=== PATIENT | female | born 1940 | race Caucasian/White ===

== ENCOUNTER 2024-06-13 01:59 | Inpatient (IN) | payer OTHER, SELFPAY ==
[2024-06-12 17:37] VITALS: BP 123/87
[2024-06-12 17:54] LABS: % Basophils 0.3 % (0-2); % Eosinophils 0.1 % (0-6); % Immature Granulocytes 0.3 % (0-0.5); % Lymphocytes 7.3 % (20.5-51.1); Absolute Monocytes 0.8 10^3/uL (0.1-0.6); Absolute Neutrophils 11.7 10^3/uL (1.4-6.5); Hematocrit 45.6 % (37.0-47.0); Hemoglobin 15.2 g/dL (12.0-16.0); Mean Corp Hgb Conc. 33.3 g/dL (33.0-37.0); Mean Corpuscular Hgb 30.6 pg (27.0-31.0); Mean Corpuscular Volume 91.8 fL (81.0-99.0); Mean Platelet Volume 10.8 fL (7.4-10.4); Nucleated Red Blood Cells % 0 %; Platelet Count 216 10^3/uL (130-400); Red Blood Cell Count 4.97 10^6/uL (4.20-5.40); Red Cell Dist. Width 13.2 % (11.5-14.5); White Blood Cell Count 13.6 10^3/uL (4.8-10.8)
[2024-06-12 18:06] LABS: Lactic Acid 0.9 mmol/L (0.7-2.0)
[2024-06-12 18:34] LABS: ALT (SGPT) 22 U/L (0-35); AST (SGOT) 24 U/L (14-36); Albumin 4.2 g/dl (3.5-5.0); Alkaline Phosphatase 84 U/L (38-126); Blood Urea Nitrogen 31 mg/dl (7-17); Calcium 9.8 mg/dl (8.4-10.2); Carbon Dioxide 29 mmol/L (22-30); Chloride 100 mmol/L (98-107); Glucose 125 mg/dl (70-99); Lipase 309 U/L (23-300); Potassium 4.3 mmol/L (3.5-5.1); Sodium 137 mmol/L (135-145); Total Bilirubin 0.3 mg/dl (0.2-1.3); Total Protein 6.8 g/dl (6.3-8.2)
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
[2024-06-12] MEDS: NSS 500 IV (22:47)
[2024-06-12 22:50] VITALS: BP 158/71
[2024-06-12 22:52] VITALS: BMI 35.7
[2024-06-13] MEDS: ZOSYN 50 IV ×5 (01:11→23:40)
--- NOTE | 2024-06-13 01:11 | HPS.HSE ---
Family Physician
-
Family Physician: Isaiah Ortiz
Chief Complaint
-
Abdominal pain
History of Present Illness
This is an 83-year-old female with past medical history of hypertension, proximal atrial fibrillation on anticoagulation, presenting to the emergency department with acute episode of abdominal pain.
She reports within 1 hour of arrival in the ED she had developed right lower quadrant abdominal pain. No radiation. There is generalized nausea but no vomiting. Denies any diarrhea. Denies any fevers or chills. No other prior episodes of
similar pain.
In the ED he was afebrile, blood pressure was 158/70 with a pulse of 71. She had leukocytosis of 13,000 otherwise hemoglobin and platelets were normal. Electrolytes and BUN/creatinine were unremarkable. Lipase was elevated at 309 otherwise LFTs
were normal. A CT of the abdomen pelvis shows acute appendicitis as evidenced by dilated appendix up to 1.2 cm with mild diffuse wall thickening and prominent periappendiceal fat stranding.
Medical History
Past Medical History
Past Medical History: Reports Arrhythmia (Proximal atrial fibrillation), HTN and Hypercholesterolemia
Past Surgical History: Reports Cholecystectomy, Gynocological (Hysterectomy), Orthopedic (Left shoulder replacement, ) and Urological
Social History
Tobacco: Non-smoker
Alcohol: None
Drug: None
Personal: Single
Living: With Family
Family History
Family History: Not pertinent
Allergies / Home Medications
Allergies reflects when Allergies were last updated in [employer].
Home Medications with original date entered in [employer]
Allergy/Medication List:
Allergies
Allergy/AdvReac Type Severity Reaction Status Date / Time
Sulfa (Sulfonamide Allergy Unknown Rash Verified 06/12/24 17:37
Antibiotics) Swelling
latex [Latex] Allergy Rash & Verified 06/12/24 17:37
Swelling
Home Medications
lisinopril 20 mg-hydrochlorothiazide 12.5 mg tablet 2 ea PO DAILY 02/14/16
acetaminophen 325 mg tablet 650 mg PO PRN PRN pain 06/13/24
apixaban 2.5 mg tablet (Eliquis) 5 mg PO BID 06/13/24
flecainide 50 mg PO DAILY 06/13/24
lisinopril 40 mg tablet 40 mg PO DAILY 06/13/24
metoprolol succinate 25 mg tablet,extended release 24 hr 25 mg PO DAILY 06/13/24
metoprolol tartrate 25 mg tablet 25 mg PO PRN PRN palpatations 06/13/24
Review of Systems
-
History Source: Patient
Constitutional: Reports No Symptoms
EENT: Reports No Symptoms
Respiratory: Reports No Symptoms
Cardiac: Reports No Symptoms
Abdomen/GI: Reports Abdominal Pain
: Reports No Symptoms
Musculoskeletal: Reports No Symptoms
Skin: Reports No Symptoms
Neurological: Reports No Symptoms
Endocrine: Reports No Symptoms
Hematologic/Lymphatic: Reports No Symptoms
Psych: Reports No Symptoms
Physical Exam
Vital Signs
Vital Signs
Temp Pulse Resp BP Pulse Ox
97.7 F 71 20 158/71 94
06/12/24 22:50 06/12/24 22:50 06/12/24 17:37 06/12/24 22:50 06/12/24 22:50
Physical Exam
General: Well Developed and Pain
HEENT: NormoCephalic, Anicteric, Moist mucous membranes and Atraumatic
Respiratory: Clear
Cardiac: S1/S2 and Regular Rhythm
Breast: Deferred by me
GI: Soft, Non Distended, Normal Bowel Sounds and Tender
Rectal: Deferred by Provider
Genito-urinary: Deferred by me
Musculoskeletal: No Clubbing, No Cyanosis and No Edema
Skin: Warm
Neuro: AO x 3 and Nonfocal/grossly intact
Psych: Calm
Laboratory Results
-
06/12/24 17:49
06/12/24 17:49
Laboratory Results
Lactic Acid 0.9 mmol/L (0.7-2.0) 06/12/24 17:49
Total Bilirubin 0.3 mg/dl (0.2-1.3) 06/12/24 17:49
AST 24 U/L (14-36) 06/12/24 17:49
ALT 22 U/L (0-35) 06/12/24 17:49
Alkaline Phosphatase 84 U/L (38-126) 06/12/24 17:49
Lipase 309 U/L (23-300) H 06/12/24 17:49
Data Reviewed
-
CT Scan: Report Reviewed by me
Lab Data: Labs Reviewed by me
Old Records: Reviewed
Impression/Plan
-
IMPRESSION:
83-year-old female with paroxysmal atrial fibrillation on anticoagulation who presents to the emergency department with right lower quadrant abdominal pain and was found to have acute appendicitis. Currently afebrile and hemodynamically stable.
RLQ tenderness to palpation.
PLAN:
Acute appendicitis - Surgery aware, possible OR today
- admit to med surg
- last eliquis was 7 am on Jun 12, holding eliquis.
- transition to heparin gtt if surgery significantly delayed
- continue iv zosyn
- npo, pain control, iv fluids and antiemetics
- holding lisinopril
- continue metoprolol and flecainide for now with hold parameters
- surgery Dr. Waqar osei, consulted. Requested medicine admission
DVT PPX - on heparin gtt
Code status - full code
[2024-06-13] MEDS: ZOFRAN 4 MG IV (01:12)
[2024-06-13] MEDS: DILAUDID 0.25 MG IV (01:12)
[2024-06-13 01:19] VITALS: BP 112/76
[2024-06-13 02:30] VITALS: BP 153/81
[2024-06-13 02:57] VITALS: BMI 34.6
[2024-06-13] MEDS: D5/0.45%NACL 1000 IV ×2 (03:00→23:25)
[2024-06-13 03:03] LABS: Urine Albumin Negative (Neg - Trace); Urine Bilirubin Negative (Negative); Urine Character Clear (Clear); Urine Color Yellow; Urine Glucose Negative (Negative); Urine Ketone Negative (Negative); Urine Leukocyte Negative (Negative); Urine Nitrite Negative (Negative); Urine Occult Blood Negative (Negative); Urine Specific Gravity 1.015 (<1.030); Urine Urobilinogen Negative (Neg - 1+)
[2024-06-13 04:34] LABS: APTT 24.5 Sec (23.4-35.0)
[2024-06-13] MEDS: HEPARIN 25000 UNITS/250 ML IV (04:45)
--- NOTE | 2024-06-13 05:00 | PTCARENOTE ---
Pt an 83-year-old female arrived from ED at 02:25 with a dx of Acute Appendicitis, PMH of hypertension, proximal atrial fibrillation on anticoagulation, presenting to the emergency department with acute episode RLQ pain. No radiation. There is
generalized nausea but no vomiting. She had leukocytosis of 13,000 & Lipase was elevated at 309 otherwise LFTs were normal. A CT of the abdomen pelvis shows acute appendicitis as evidenced by dilated appendix up to 1.2 cm with mild diffuse wall
thickening and prominent periappendiceal fat stranding.Heparin drip ordered but not started in ED, TT [employer] asking if they wanted to start heparin drip on surgical pt, she reached out to ED doc who confirmed order. Initial PTT draw ordered and once
resulted heparin drip started and then was almost immediately canceled at surgeon's request. PT AOx3, bed in a low position, call light in reach care ongoing.
[2024-06-13] MEDS: DILAUDID 0.5 MG IV ×4 (05:38→21:09)
[2024-06-13 06:50] LABS: Hematocrit 41.8 % (37.0-47.0); Hemoglobin 14.8 g/dL (12.0-16.0); Mean Corp Hgb Conc. 35.4 g/dL (33.0-37.0); Mean Corpuscular Hgb 31.3 pg (27.0-31.0); Mean Corpuscular Volume 88.4 fL (81.0-99.0); Mean Platelet Volume 11.2 fL (7.4-10.4); Platelet Count 145 10^3/uL (130-400); Red Blood Cell Count 4.73 10^6/uL (4.20-5.40); Red Cell Dist. Width 12.7 % (11.5-14.5); White Blood Cell Count 9.9 10^3/uL (4.8-10.8)
[2024-06-13 07:35] VITALS: BP 103/67
[2024-06-13] MEDS: TAMBOCOR 50 MG PO (07:58)
[2024-06-13] MEDS: TOPROL XL PO (07:59)
[2024-06-13 10:20] LABS: Blood Urea Nitrogen 26 mg/dl (7-17); Calcium 9.1 mg/dl (8.4-10.2); Carbon Dioxide 33 mmol/L (22-30); Chloride 95 mmol/L (98-107); Estimated Creatinine Clearance 46 ml/min; Glucose 114 mg/dl (70-99); Potassium 3.9 mmol/L (3.5-5.1); Sodium 135 mmol/L (135-145); eGFR > 60.00
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
--- NOTE | 2024-06-13 12:00 | W.PN.HOSP.TC ---
Today's Communication/Plan
-
OR tomorrow
continue plan as outlined
Assessment / Plan
Assessment / Plan
Assessment:
Acute appendicitis
- CT: suggesting acute appendicitis. Progressed. No evidence of perforation or abscess formation. Associated appendicoliths.
- discussed with Surgery; for OR 06/14
- continue pain control
- continue anti-emetics
- continue IV Zosyn
- continue IVF
Elevated Lipase
- reactive
Parox Afib
- holding Eliquis for OR (Last dose 06/12 7 AM)
- continue Flecainide/BB
Essential HTN
- continue BB
- hold Lisinopril/HCTZ
DVT ppx: SCDs
Code: Full
Anticipated Discharge: > 48 hours
Subjective/Interval History
-
Date of Service: June 13, 2024
denies any new complaints, just lower abd discomfort
Objective Data
-
Labs:
Laboratory Results
06/13/24 06/13/24 06/13/24
02:47 03:51 06:03
WBC 9.9
Hgb 14.8
Hct 41.8
Plt Count 145 D
APTT Cancelled 24.5
Sodium Cancelled
Potassium Cancelled
Chloride Cancelled
Carbon Dioxide Cancelled
BUN Cancelled
Creatinine Cancelled
Glucose Cancelled
Calcium Cancelled
06/13/24
09:44
WBC
Hgb
Hct
Plt Count
APTT
Sodium 135
Potassium 3.9
Chloride 95 L
Carbon Dioxide 33 H
BUN 26 H
Creatinine 0.9
Glucose 114 H
Calcium 9.1
Vital Signs:
Vital Signs
Temp Pulse Resp BP Pulse Ox
98.7 F 82 18 103/67 95
06/13/24 07:35 06/13/24 07:35 06/13/24 07:35 06/13/24 07:59 06/13/24 07:35
I&O
06/12/24 06/13/24 06/14/24
06:59 06:59 06:59
Intake Total 250 / 250 300 / 300
Output Total 100 / 100
Balance 250 / 250 200 / 200
Physical Exam
-
General: Well Developed and Well Nourished
HEENT: Normocephalic and Atraumatic
Respiratory: Negative Wheezes
Cardiac: Regular Rhythm and S1/S2
GI: Tender (RLQ)
Genito-urinary: No Costovertebral Tender
Neuro: AO x 3
Hematologic / Lymphatic: No Lymphadenopathy
Psych: Calm
Data Reviewed
-
Total Time Spent with Patient (in minutes): 44
Labs: Labs Reviewed by me
[2024-06-13] MEDS: DILAUDID 1 MG IV (13:37)
--- NOTE | 2024-06-13 14:36 | CM ---
Met with pt at bedside
Pt reports she lives with her son in an apartment; 12 steps to enter, FF set-up
Independent, active, drives
DME - shower chair, commode
SNF - denies past hx
HH - [facility] in past
Has ride home at d/c
PCP - Isaiah Ortiz
Pharm - [facility]
Plan - anticipate home no needs
[2024-06-13 15:30] VITALS: BP 110/70
[2024-06-13 23:00] VITALS: BP 113/63
[2024-06-14] VITALS (58 sets, daily range): BP systolic 59–146; BP diastolic 36–91; BMI 35.7
[2024-06-14] MEDS: DILAUDID 0.5 MG IV ×3 (02:25→21:40)
[2024-06-14 05:13] LABS: Hemoglobin 13.9 g/dL (12.0-16.0); Mean Corp Hgb Conc. 33.1 g/dL (33.0-37.0); Mean Corpuscular Hgb 30.6 pg (27.0-31.0); Mean Corpuscular Volume 92.5 fL (81.0-99.0); Mean Platelet Volume 11.2 fL (7.4-10.4); Platelet Count 172 10^3/uL (130-400); Red Blood Cell Count 4.54 10^6/uL (4.20-5.40); Red Cell Dist. Width 13.4 % (11.5-14.5); White Blood Cell Count 15.8 10^3/uL (4.8-10.8)
[2024-06-14] MEDS: ZOSYN 50 IV ×4 (05:24→23:33)
[2024-06-14 05:35] LABS: Blood Urea Nitrogen 36 mg/dl (7-17); Calcium 8.7 mg/dl (8.4-10.2); Carbon Dioxide 30 mmol/L (22-30); Chloride 96 mmol/L (98-107); Estimated Creatinine Clearance 23 ml/min; Glucose 117 mg/dl (70-99); Potassium 3.7 mmol/L (3.5-5.1); Sodium 134 mmol/L (135-145); eGFR 27.96
[2024-06-14] MEDS: TOPROL XL PO (09:28)
[2024-06-14] MEDS: TAMBOCOR PO (09:28)
--- NOTE | 2024-06-14 10:08 | W.IMMPOSTOP ---
Addendum entered and electronically signed by Isaiah Zavaleta MD 06/14/24 11:08:
Patient with fever and hypotension in RR requiring IVFs and yani gtts. She is awake and appropriate. Dr. Grande aware and to admit to ICU. Patient's daughter, Shantelle, updated by me via phone.
Addendum entered and electronically signed by Isaiah Zavaleta MD 06/14/24 10:17:
Patient's daughter, Shantelle, updated via phone.
Original Note:
Surgical Immed Post Op Note
-
Primary Surgeon: Luis Zavaleta MD
Assisting Surgeon: TRISH Mills
Pre-op Diagnosis: acute appendicitis
Post-op Diagnosis: same
Procedure Performed: laparoscopic appendectomy
Anesthesia Type: general plus local
Specimen / Cultures: appendix
Estimated Blood Loss: 25 cc
Complications: no immediate
Operative Findings: inflamed appendix stuck to nearby structures with some surrounding exudate
Moore in bladder.
Continuing Zosyn.
Sending back to med surg.
[2024-06-14] MEDS: NEO-SYNEPHRINE 250 IV (11:13)
--- NOTE | 2024-06-14 11:13 | W.PN.HOSP.TC ---
Today's Communication/Plan
-
pressors, IVF, Abx
follow stat labs
transfer ICU
Assessment / Plan
Assessment / Plan
Assessment:
Sepsis POA - now progressed to post-operative multifactorial shock from sepsis (also Anesthesia effects)
- s/p 2 liters in PACU; start maintenance IVF
- start Tyree-synephrine drip; may need 2nd pressor
- ICU consulted
Acute appendicitis
- CT: suggesting acute appendicitis. Progressed. No evidence of perforation or abscess formation. Associated appendicoliths.
- s/p lap appendectomy 06/14/24
- continue IV Zosyn, day 2. check blood cultures now with fever/shock
- continue anti-emetics, pain control
- follow colorectal recs
[facility]
- likely from dehydration, sepsis
- continue IVF
- bladder scans
- holding nephrotoxins
Elevated Lipase
- reactive
Parox Afib
- holding Eliquis; resume when able post-op per Colorectal
- continue Flecainide
- hold BB
Essential HTN
- hold BB
- hold Lisinopril/HCTZ
DVT ppx: SCDs
Code: Full
Total Critical Care Time 45 minutes. I was immediately available to the patient and staff. I personally examined, reviewed labs, diagnostic images/reports, interpretations, treatment plans, discussed patient care with other providers and family
or caregivers (if patient is unable to make decisions), entered orders as appropriate and documented the medical record.
Anticipated Discharge: > 48 hours
Subjective/Interval History
-
Date of Service: June 14, 2024
calling by after AM lap appy that BP is 60s - pressors started in PACU. per reports, tachycardic in OR received Lopressor. Also received 2 liters IVF.
Currently starting Tyree-synephrine in PACU; stat labs ordered (AM cr 1.8)
Objective Data
-
Labs:
Laboratory Results
06/14/24
04:50
WBC 15.8 H
Hgb 13.9
Hct 42.0
Plt Count 172
Sodium 134 L
Potassium 3.7
Chloride 96 L
Carbon Dioxide 30
BUN 36 H
Creatinine 1.8 H
Glucose 117 H
Calcium 8.7
Vital Signs:
Vital Signs
Temp Pulse Resp BP Pulse Ox
101.6 F H 87 14 62/39 94
06/14/24 10:10 06/14/24 11:05 06/14/24 11:05 06/14/24 11:05 06/14/24 11:05
I&O
06/13/24 06/14/24 06/15/24
06:59 06:59 06:59
Intake Total 250 / 250 1000 / 1000
Output Total 300 / 300 200 / 200
Balance 250 / 250 700 / 700 -200 / -200
Physical Exam
-
General: No Apparent Distress
HEENT: Normocephalic and Atraumatic
Respiratory: Negative Wheezes
Cardiac: Regular Rhythm and S1/S2
GI: Soft and Tender
Neuro: AO x 3
Hematologic / Lymphatic: No Lymphadenopathy
Psych: Calm
Data Reviewed
-
Critical Care Time (in minutes): 45
Labs: Labs Reviewed by me
[2024-06-14 11:31] LABS: % Basophils 0.2 % (0-2); % Immature Granulocytes 0.4 % (0-0.5); % Lymphocytes 2.5 % (20.5-51.1); % Monocytes 5.5 % (1.7-9.3); % Neutrophils 91.4 % (42.2-75.2); Absolute Immature Granulocytes 0.1 10^3/uL (0-0.05); Absolute Lymphocytes 0.3 10^3/uL (1.2-3.4); Absolute Monocytes 0.7 10^3/uL (0.1-0.6); Hematocrit 46.7 % (37.0-47.0); Hemoglobin 15.4 g/dL (12.0-16.0); Mean Corpuscular Hgb 31.5 pg (27.0-31.0); Mean Corpuscular Volume 95.5 fL (81.0-99.0); Mean Platelet Volume 10.9 fL (7.4-10.4); Nucleated Red Blood Cells % 0 %; Platelet Count 169 10^3/uL (130-400); Red Blood Cell Count 4.89 10^6/uL (4.20-5.40); Red Cell Dist. Width 13.8 % (11.5-14.5); White Blood Cell Count 13.2 10^3/uL (4.8-10.8)
[2024-06-14] MEDS: LR 1000 IV ×2 (11:37→21:41)
[2024-06-14 11:39] LABS: INR 1.16; PT 15.1 Sec (11.4-14.6)
[2024-06-14 11:40] LABS: APTT 29.1 Sec (23.4-35.0)
[2024-06-14 11:47] LABS: Lactic Acid 1.1 mmol/L (0.7-2.0)
[2024-06-14 11:56] LABS: ALT (SGPT) 26 U/L (0-35); AST (SGOT) 29 U/L (14-36); Albumin 3.7 g/dl (3.5-5.0); Alkaline Phosphatase 88 U/L (38-126); Blood Urea Nitrogen 35 mg/dl (7-17); Calcium 8.1 mg/dl (8.4-10.2); Carbon Dioxide 28 mmol/L (22-30); Chloride 96 mmol/L (98-107); Estimated Creatinine Clearance 28 ml/min; Glucose 115 mg/dl (70-99); Potassium 3.8 mmol/L (3.5-5.1); Sodium 136 mmol/L (135-145); Total Bilirubin 1.7 mg/dl (0.2-1.3); Total Protein 6.4 g/dl (6.3-8.2); eGFR 34.79
--- NOTE | 2024-06-14 13:03 | PTCARENOTE ---
report from PACU 1025..BP issues intra-op. 96/58 Bolus of IVF ongoing, O2 4l 93% HR 130's. nasty appendix. request to hold longer. 1100: PACU callback pt may be septic sending to ICU. belongings walked to [id number]. called to give report not assigned
yet.
[2024-06-14] MEDS: DILAUDID 1 MG IV ×2 (13:19→17:04)
--- NOTE | 2024-06-14 13:38 | PTCARENOTE ---
received from PACU, assessments per work list. patient alert and oriented, c/o 8/10 abdominal pain. mediated with dilaudid per prn order. monitor nsr, yani per work list. abdomen soft, lap sites intact. abdomen obese, tender. hypoactive bowel sounds.
rasmussen draining small amounts yellow urine. oriented to room and plan of care. call saleem in reach
--- NOTE | 2024-06-14 15:57 | PTCARENOTE ---
patient reassessed. neosyn weaned to off. room air pulse oximeter 88, placed back on nasal cannula 1 liter. IS, coughing and deep breathing encouraged. tolerating clear liquids. denies discomfort. rasmussen draining yellow urine
--- NOTE | 2024-06-14 16:43 | CON.INTV ---
Consultation
Consultation Request
Date/Time Consultation Requested: 06/14/2024
Date/Time Consultation Performed: 06/14/2024
Requesting Provider: Dr. Zavaleta
Performing Provider: Dr. Alo Sandoval
Reason for Consultation: Septic shock due to appendicitis
Medical History
-
History of Present Illness:
83-year-old woman with past medical history significant for hypertension, paroxysmal atrial fibrillation on anticoagulation who presented to the emergency room with acute abdominal pain.
Approximately an hour prior to admission patient developed right lower quadrant pain with no radiation.
In the emergency room she was hypertensive, afebrile hide leukocytosis. CT abdomen pelvis demonstrated acute appendicitis. Diffuse wall thickening and prominent appendiceal fat stranding.
Past Medical History
Past Medical History: Other
Social History
Tobacco: Non-smoker
Alcohol: None
Personal: Single
Living: With Family
Family History
Family History: Reviewed & Not Pertinent
Allergies / Home Medications
Allergies
Allergy/AdvReac Type Severity Reaction Status Date / Time
Sulfa (Sulfonamide Allergy Unknown Rash Verified 06/12/24 17:37
Antibiotics) Swelling
latex [Latex] Allergy Rash & Verified 06/12/24 17:37
Swelling
Home Medications
�Medication �Instructions �Recorded �Confirmed �Last Taken �Type
lisinopril 20 2 ea PO DAILY Blood Pressure 02/14/16 06/13/24 03/21/18 05:00 History
mg-hydrochlorothiazide 12.5 mg
tablet
acetaminophen 325 mg tablet 650 mg PO PRN PRN pain 06/13/24 06/13/24 Unknown History
apixaban 2.5 mg tablet (Eliquis) 5 mg PO BID Blood Clot 06/13/24 06/13/24 Unknown History
Prevention/Tx
flecainide 50 mg PO DAILY Arrhythmia 06/13/24 06/13/24 Unknown History
lisinopril 40 mg tablet 40 mg PO DAILY Blood Pressure 06/13/24 06/13/24 Unknown History
metoprolol succinate 25 mg 25 mg PO DAILY Blood Pressure 06/13/24 06/13/24 Unknown History
tablet,extended release 24 hr
metoprolol tartrate 25 mg tablet 25 mg PO PRN PRN palpatations 06/13/24 06/13/24 Unknown History
Review of Systems
-
History Source: Patient
All other systems: Negative unless noted
Vitals / Labs / Diagnostic Testing
Vital Signs
Temp Pulse Resp BP Pulse Ox
98.9 F 74 15 112/73 94
06/14/24 15:59 06/14/24 15:34 06/14/24 15:34 06/14/24 15:34 06/14/24 15:59
Lab Data
06/14/24 11:19
06/14/24 11:19
Laboratory Results
06/14/24
11:19
PT 15.1 H
INR 1.16
APTT 29.1
Diagnostic Testing:
Physical Exam
-
HEENT: Normocephalic
Cardiovascular: S1/S2
Respiratory: Clear and Non-Labored Respirations
GI: Soft, Non Distended and Tender (Decreased bowel sounds)
Neurology: Awake, Alert, Oriented, AO x 3 and No Motor Deficits
Skin: Warm
General: Comfortable
Assessment
-
83-year-old woman admitted on 06/12/2024 with abdominal pain, found to have acute appendicitis and acute kidney injury. Taken to the operating room on 06/14/2024, underwent laparoscopic appendectomy. During the postoperative period became hypotensive
requiring IV fluids and pressors. Transferred to the critical care unit for further care.
Septic shock post appendectomy
Acute appendicitis status post appendectomy 06/14/2024
CT abdomen reviewed: suggesting acute appendicitis. Progressed. No evidence of perforation or abscess formation. Associated appendicoliths.
Laparoscopic appendectomy 06/14/2024 Dr. Zavaleta
Acute kidney injury
Conditions present prior admission:
Atrial fibrillation on anticoagulation
Hypertension
History of prior multiple abdominal surgeries
Cholecystectomy, hysterectomy,
left shoulder replacement.
Assessment and plan:
Septic shock post appendectomy
Status post IV fluid resuscitation
Follow renal function creatinine is increased compared to baseline.
Lactic acid is 1.1
Wean off Tyree-Synephrine, target systolic blood pressure greater or equal to 90.
Maintain maintenance LR at 100 cc an hour
-
Afebrile, follow leukocytosis.
Serial abdominal exam.
Antibiotics will continue
Follow culture-operative report reviewed, there was no spillage or rupture.
-
Hold anticoagulation
Hold antihypertensive
DVT prophylaxis with SCDs until cleared by surgeon
-
Analgesia with as needed narcotics-watch respiratory status closely.
-
Mild hypoxemia due to subsegmental atelectasis
Incentive spirometry encourage
-
N.p.o. for now advance per surgery. Advance diet per surgery head of the evaluation
Aspiration precautions
-
Critical care statement: A total of 32 minutes of critical care time was provided for this patient today. This includes management of unstable vital signs, evaluation of the patient at bedside, reviewing the patient's pertinent medical records
including radiographs, microbiology, laboratory evaluations and discussion with primary team, critical care nursing, and respiratory therapy.
--- NOTE | 2024-06-14 17:11 | PTCARENOTE ---
yani gtt resumed for hypotension. c/o severe pain, medicated with Dilaudid per prn order. decreased urine ouput, drug abuse resistance education officer at bedside and updated
--- NOTE | 2024-06-14 18:07 | PTCARENOTE ---
patient c/o pain laterally and distally to IV site on left forearm as well as numb feeling left hand. iv flushes well without discomfort, no signs infiltration. IV's moved to right AC per patient request. pain, numb feeling resolved within seconds
[2024-06-14] MEDS: HEPARIN 5000 UNITS SC (19:47)
--- NOTE | 2024-06-14 20:00 | PTCARENOTE ---
Rec'd pt resting in bed, cooperative, requests no pain med at present, SR, yani gtt off- to keep SBP > 90, weak distal pulses, skin warm/dry, O2 1 liter nc, sat 97, lungs decr in bases, reaches 1000 on IS, hypo bowel sounds, no bm, abd obese, tender
to palpation, lap sites intact w/ surgical adhesive, no n/v, ana sips h20, rasmussen draining ronald urine
--- NOTE | 2024-06-14 21:45 | PTCARENOTE ---
dilaudid 0.5 mg iv given for pain
[2024-06-14] MEDS: MELATONIN 5 MG PO (22:36)
--- NOTE | 2024-06-14 22:40 | PTCARENOTE ---
melatonin 5mg po given for sleep
[2024-06-15] VITALS (20 sets, daily range): BP systolic 92–130; BP diastolic 52–105; BMI 36.1
--- NOTE | 2024-06-15 | PTCARENOTE ---
sys reviewed, changes noted
[2024-06-15] MEDS: HEPARIN 5000 UNITS SC ×4 (00:27→23:08)
[2024-06-15 03:59] LABS: % Basophils 0.2 % (0-2); % Immature Granulocytes 0.3 % (0-0.5); % Lymphocytes 3.5 % (20.5-51.1); % Monocytes 6.7 % (1.7-9.3); % Neutrophils 89.3 % (42.2-75.2); Absolute Lymphocytes 0.4 10^3/uL (1.2-3.4); Absolute Monocytes 0.8 10^3/uL (0.1-0.6); Absolute Neutrophils 10.5 10^3/uL (1.4-6.5); Hematocrit 36.1 % (37.0-47.0); Hemoglobin 12.2 g/dL (12.0-16.0); Mean Corp Hgb Conc. 33.8 g/dL (33.0-37.0); Mean Corpuscular Hgb 31.3 pg (27.0-31.0); Mean Corpuscular Volume 92.6 fL (81.0-99.0); Mean Platelet Volume 11.2 fL (7.4-10.4); Nucleated Red Blood Cells % 0 %; Platelet Count 134 10^3/uL (130-400); Red Cell Dist. Width 13.4 % (11.5-14.5); White Blood Cell Count 11.8 10^3/uL (4.8-10.8)
--- NOTE | 2024-06-15 04:00 | PTCARENOTE ---
sys reviewed, changes noted
[2024-06-15 04:26] LABS: ALT (SGPT) 19 U/L (0-35); AST (SGOT) 22 U/L (14-36); Albumin 2.6 g/dl (3.5-5.0); Alkaline Phosphatase 62 U/L (38-126); Blood Urea Nitrogen 35 mg/dl (7-17); Calcium 7.2 mg/dl (8.4-10.2); Carbon Dioxide 31 mmol/L (22-30); Chloride 100 mmol/L (98-107); Estimated Creatinine Clearance 39 ml/min; Glucose 118 mg/dl (70-99); Potassium 3.6 mmol/L (3.5-5.1); Sodium 135 mmol/L (135-145); Total Bilirubin 0.9 mg/dl (0.2-1.3); Total Protein 4.9 g/dl (6.3-8.2); eGFR 50.48
[2024-06-15] MEDS: ZOSYN 50 IV ×4 (05:15→23:07)
[2024-06-15] MEDS: DILAUDID 1 MG IV ×3 (05:53→14:19)
--- NOTE | 2024-06-15 05:53 | PTCARENOTE ---
dilaudid 1mg iv given for pain
--- NOTE | 2024-06-15 07:13 | W.PN.INTV ---
Today's Communication / Plan
Recommendations
Doing well postop, stable on RA
Off pressors, transitioned to oral diet/off IVFs
PT/OT, encouraged OOB
Pain control, minimal
Transfer to surgical floor, we will sign off upon transfer
Assessment
-
83-year-old woman admitted on 06/12/2024 with abdominal pain, found to have acute appendicitis and acute kidney injury. Taken to the operating room on 06/14/2024, underwent laparoscopic appendectomy. During the postoperative period became hypotensive
requiring IV fluids and pressors. Transferred to the critical care unit for further care.
Septic shock post appendectomy
Acute appendicitis status post appendectomy 06/14/2024
CT abdomen reviewed: suggesting acute appendicitis. Progressed. No evidence of perforation or abscess formation. Associated appendicoliths.
Laparoscopic appendectomy 06/14/2024 Dr. Zavaleta
Acute kidney injury
Conditions present prior admission:
Atrial fibrillation on anticoagulation
Hypertension
History of prior multiple abdominal surgeries: cholecystectomy, hysterectomy
Left shoulder replacement
Plan
Septic shock post appendectomy, resolved
Status post IV fluid resuscitation
Follow renal function creatinine is increased compared to baseline.
Lactic acid is 1.1
Off pressors
Diet advancement per surgery, off IVFs
-
Afebrile, follow leukocytosis.
Serial abdominal exam.
Antibiotics will continue
Follow culture-operative report reviewed, there was no spillage or rupture.
Gen surg following
Hold anticoagulation
Hold antihypertensive
DVT prophylaxis with SCDs until cleared by surgeon
-
Analgesia with as needed narcotics-watch respiratory status closely.
-
Mild hypoxemia due to subsegmental atelectasis
Incentive spirometry encourage
Advance diet further per surgery head of the evaluation
Aspiration precautions
PT/OT, OOB
Diagnostic Data
Chest X-Ray: 06/14/24- 1. Mild elevation of the right hemidiaphragm. 2. Mild subsegmental atelectasis in the lower lobes.
10/15/22- No evidence of active cardiopulmonary disease.
CT Scan: AP 06/12/24- Findings suggesting acute appendicitis. Progressed. No evidence of perforation or abscess formation. Associated appendicoliths. Left adnexal cyst likely benign peritoneal inclusion cyst. Stable Fat-containing ventral hernia. No
evidence of incarceration or strangulation. Stable
Echo: n/a
PFT's:
Reports and relevant images were personally reviewed.
Critical care statement: A total of 32 minutes of critical care time was provided for this patient today. This includes management of unstable vital signs, evaluation of the patient at bedside, reviewing the patient's pertinent medical records
including radiographs, microbiology, laboratory evaluations and discussion with primary team, critical care nursing, and respiratory therapy.
Subjective Dataa
Subjective Data
Date of Service:
Date of Service: June 15, 2024
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
Subjective:
Doing well, no issues, pain minimal
Stable on RA
Objective Data
Data Reviewed
Vital Signs / I&O / Oxygen:
Vital Signs
Temp Pulse Resp BP Pulse Ox
97.7 F 73 20 110/63 96
06/15/24 03:05 06/15/24 06:00 06/15/24 06:00 06/15/24 06:00 06/15/24 05:00
Intake and Output
06/14/24 06/15/24 06/16/24
06:59 06:59 06:59
Intake Total 1000 / 1000 2854 / 2854
Output Total 300 / 300 1000 / 1000
Balance 700 / 700 1854 / 1854
SaO2 96
Nasal Cannula flow liters per 1
minute
Physical Exam
General: Comfortable and Other (NAD)
HEENT: Normocephalic, Anicteric and Moist Mucous Membranes
Cardiovascular: S1-S2 and Regular Rhythm
Respiratory: Clear and Non-Labored Respirations
GI: Soft, Non Distended and Non Tender
Neurology: Awake, Alert, Oriented and No Motor Deficits
Skin: Warm, Dry and Good Color
Labs/Micro/Reports
Lab Data
06/15/24 03:40
06/15/24 03:40
Laboratory Results
06/14/24
11:19
PT 15.1 H
INR 1.16
APTT 29.1
--- NOTE | 2024-06-15 07:45 | PTCARENOTE ---
Received pt @ change of shift. Pt. AAOx3, c/o abd discomfort @ surgical area, meets acceptable level @ this time. SR w BBB on monitor. SpO2 97% on 1LNC. Auscultated dim breath sounds @ bases. +BS, abd round/obese/tender. 3 lap sites on abd
approximated/surgical glue present. Tolerating clear liq diet. Moore in place draining yellow urine. #20 R AC w LR @ 100mL/hr infusing. # 18 L FA patent, dressing c/d/i. Instructed on how to report care concerns and call saleem in reach.
[2024-06-15] MEDS: TAMBOCOR 50 MG PO (07:46)
--- NOTE | 2024-06-15 09:13 | W.PN.HOSP.TC ---
Today's Communication/Plan
-
continue IVF
observe through today, if stable, can transfer from ICU to [address] [place] [address]
continue Abx and follow cultures
continue DVT prophylaxis
follow colorectal recs
Assessment / Plan
Assessment / Plan
Assessment:
Sepsis POA - now progressed to post-operative multifactorial shock from sepsis (also Anesthesia effects)
- s/p 2 liters in PACU
- continue maintenance IVF
- currently of pressors, MAP >65
- ICU following
Acute appendicitis
- CT: suggesting acute appendicitis. Progressed. No evidence of perforation or abscess formation. Associated appendicoliths.
- s/p lap appendectomy 06/14/24
- continue IV Zosyn, day 3. follow blood cultures post-op with development of shock
- continue anti-emetics, pain control
- follow colorectal recs
EDWIN
- likely from dehydration, sepsis
- continue IVF
- bladder scans
- holding nephrotoxins
Elevated Lipase
- reactive
Parox Afib
- holding Eliquis; resume when able post-op per Colorectal
- continue Flecainide
- hold BB
Essential HTN
- hold BB
- hold Lisinopril/HCTZ
DVT ppx: SC Heparin
Code: Full
Total Critical Care Time 42 minutes. I was immediately available to the patient and staff. I personally examined, reviewed labs, diagnostic images/reports, interpretations, treatment plans, discussed patient care with other providers and family
or caregivers (if patient is unable to make decisions), entered orders as appropriate and documented the medical record.
Anticipated Discharge: > 48 hours
Subjective/Interval History
-
Date of Service: June 15, 2024
BP improved, currently off pressors
reports post-op incisional pain
no fevers
Objective Data
-
Labs:
Laboratory Results
01/06/25
03:40
WBC 11.8 H
Hgb 12.2 D
Hct 36.1 L
Plt Count 134 D
Sodium 135
Potassium 3.6
Chloride 100
Carbon Dioxide 31 H
BUN 35 H
Creatinine 1.1 H
Glucose 118 H
Calcium 7.2 L
Total Bilirubin 0.9
AST 22
ALT 19
Alkaline Phosphatase 62
Vital Signs:
Vital Signs
Temp Pulse Resp BP Pulse Ox
98.3 F 76 18 110/63 97
06/15/24 07:00 06/15/24 07:00 06/15/24 07:00 06/15/24 06:00 06/15/24 08:56
I&O
06/14/24 06/15/24 06/16/24
06:59 06:59 06:59
Intake Total 1000 / 1000 2854 / 2954 100 / 100
Output Total 300 / 300 1000 / 1000
Balance 700 / 700 1854 / 1954 100 / 100
Physical Exam
-
General: No Apparent Distress
HEENT: Normocephalic and Atraumatic
Respiratory: Negative Wheezes
Cardiac: Regular Rhythm and S1/S2
GI: Tender and Distended (slightly)
Genito-urinary: No Costovertebral Tender
Neuro: AO x 3
Psych: Calm
Data Reviewed
-
Critical Care Time (in minutes): 42
Labs: Labs Reviewed by me
[2024-06-15] MEDS: LR 1000 IV (10:21)
--- NOTE | 2024-06-15 11:09 | W.PN.CRS1 ---
Today's Communication / Plan
-
continue antibiotics
advance to fulls
OOB
Assessment/Plan
-
POD#1 laparoscopic appendectomy
06/14/24- hypotensive post op, improved with yani gtt
-Advance diet to fulls
-Decrease IVFs to 60ml/hr
-OOB as tolerated
-OR pathology pending
-On heparin subq q8, holding Eliquis for now
-Continue IV antibiotics
-Pain control: Tylenol standing, Dilaudid PRN
Subjective Data
Procedure
06/14/2023- laparoscopic appendectomy
Subjective Data
Date of Service: June 15, 2024
Patient states her pain is controlled. She denies nausea or vomiting. She has not had a bowel movement yet. She tolerated clears.
Objective Data
-
Vital Signs
Temp Pulse Resp BP Pulse Ox
98.3 F 76 18 110/63 97
06/15/24 07:00 06/15/24 07:00 06/15/24 07:00 06/15/24 06:00 06/15/24 08:56
Intake & Output
06/14/24 06/15/24 06/16/24
06:59 06:59 06:59
Intake Total 1000 / 1000 2854 / 2954 100 / 100
Output Total 300 / 300 1000 / 1000
Balance 700 / 700 1854 / 1954 100 / 100
Intake:
Oral fluids 960 / 960
IV fluids (Total) 900 / 900 1694 / 1794 100 / 100
Lr 1,000 ml @ 100 mls/hr IV . 1650 / 1750 100 / 100
Q10H A[facility] Rx#:[id number]
neosyn 44 / 44
IV piggybacks 100 / 100 200 / 200
Output:
Urine, Moore 1000 / 1000
Urine, Voided 300 / 300
Other:
Number of approximated MODERATE 3
amounts of urine
Number of approximated LARGE 1
amounts of urine
Lab Results
06/15/24 03:40
06/15/24 03:40
Physical Exam
-
General: No Acute Distress and AOx3
Abdomen: Soft, Non Distended and Tender (mild around incisions)
Skin: Warm and Dry
Incision: Clear, Dry, Intact
--- NOTE | 2024-06-15 13:13 | PTCARENOTE ---
Assisted OOB to chair x2 w stand by assist. Tolerated OOB to chair approx 4H. Assisted back into bed s/p lunch. Also, tolerating full liq diet. BP remains stable, denies dizziness/lightheadedness w activity. Call harper w/ in reach.
--- NOTE | 2024-06-15 15:09 | CM ---
CM following re: discharge planning.
Discussed in Rounds, reviewed pt's chart, met with pt.
Pt is POD#1 laparoscopic appendectomy, continue supportive care.
D/C plan: [facility] wit anticipated no needs. family to transport at discharge.
CM will follow with discharge plan updates as hospitalization progresses
[2024-06-15] MEDS: TOPROL XL 25 MG PO (16:50)
--- NOTE | 2024-06-15 17:06 | PTCARENOTE ---
pt.s cardiac rhythm back in afib w rates 100-120's; asymptomatic. Admin 1st dose Toprol-see AUG. , Dr. Grande, aware. Call saleem in reach.
--- NOTE | 2024-06-15 18:35 | PTCARENOTE ---
Report given to 4E RN and pt. transported via wheelchair on gambling monitor w belongings to [phone]. No further needs from this RN.
[2024-06-15] MEDS: TAMBOCOR 100 MG PO (19:49)
[2024-06-15] MEDS: DILAUDID 0.5 MG IV (19:50)
[2024-06-15] MEDS: MELATONIN 5 MG PO (20:43)
[2024-06-16] MEDS: DILAUDID 0.5 MG IV ×2 (00:43→06:24)
[2024-06-16 03:59] VITALS: BP 133/75
[2024-06-16] MEDS: ZOSYN 50 IV ×2 (05:12→12:43)
[2024-06-16 06:42] LABS: % Basophils 0.1 % (0-2); % Eosinophils 0.1 % (0-6); % Immature Granulocytes 0.5 % (0-0.5); % Lymphocytes 10.3 % (20.5-51.1); % Monocytes 8.7 % (1.7-9.3); % Neutrophils 80.3 % (42.2-75.2); Absolute Lymphocytes 0.9 10^3/uL (1.2-3.4); Absolute Monocytes 0.8 10^3/uL (0.1-0.6); Hematocrit 37.7 % (37.0-47.0); Hemoglobin 12.7 g/dL (12.0-16.0); Mean Corp Hgb Conc. 33.7 g/dL (33.0-37.0); Mean Corpuscular Hgb 31.4 pg (27.0-31.0); Mean Corpuscular Volume 93.1 fL (81.0-99.0); Mean Platelet Volume 11.3 fL (7.4-10.4); Nucleated Red Blood Cells % 0 %; Platelet Count 167 10^3/uL (130-400); Red Blood Cell Count 4.05 10^6/uL (4.20-5.40); Red Cell Dist. Width 13.1 % (11.5-14.5); White Blood Cell Count 8.7 10^3/uL (4.8-10.8)
[2024-06-16 07:11] LABS: ALT (SGPT) 21 U/L (0-35); AST (SGOT) 24 U/L (14-36); Albumin 2.9 g/dl (3.5-5.0); Alkaline Phosphatase 86 U/L (38-126); Blood Urea Nitrogen 31 mg/dl (7-17); Calcium 8.2 mg/dl (8.4-10.2); Carbon Dioxide 32 mmol/L (22-30); Chloride 97 mmol/L (98-107); Estimated Creatinine Clearance 47 ml/min; Glucose 91 mg/dl (70-99); Potassium 3.6 mmol/L (3.5-5.1); Sodium 133 mmol/L (135-145); Total Bilirubin 0.8 mg/dl (0.2-1.3); Total Protein 5.6 g/dl (6.3-8.2); eGFR > 60.00
[2024-06-16 08:32] VITALS: BP 135/77
[2024-06-16] MEDS: HEPARIN 5000 UNITS SC (08:44)
[2024-06-16] MEDS: TAMBOCOR 100 MG PO (08:45)
[2024-06-16] MEDS: TOPROL XL 25 MG PO (08:45)
--- NOTE | 2024-06-16 09:08 | W.PN.CRS1 ---
Addendum entered and electronically signed by Isaiah Zavaleta MD 06/17/24 12:57:
Of note, diagnosis was Acute appendicitis with localized peritonitis.
Original Note:
Today's Communication / Plan
-
As below
Assessment/Plan
-
83-year-old female with PMH of A-fib (on Eliquis), HTN, HLD who presents with acute abdominal pain was found to have acute appendicitis
POD 2 lap appendectomy
� Complicated by dramatic SIRS response requiring vasopressor, now off
AFVSS
WBC 8.7 from 11.8, Hb 12.7 from 12.2, CR 0.2, UOP 1.2 L
�Advance to regular diet
� Continue pain control with Tylenol, tramadol as needed
� Continue DVT PPx with subQ heparin; okay to start Eliquis this p.m.
� Continue antibiotics, needs total of 7 days from surgery
� Appreciate hospitalist; okay for DC if tolerating solid foods; follow-up with [facility] in 2 to 4 weeks
Subjective Data
Procedure
06/14/2023- laparoscopic appendectomy
Subjective Data
Date of Service: June 16, 2024
No overnight events.
Pain controlled.
No n/v. Tolerating fulls.
No BMs/flatus yet.
Voiding.
Objective Data
-
Vital Signs
Temp Pulse Resp BP Pulse Ox
98 F 94 18 135/77 95
06/16/24 08:32 06/16/24 08:32 06/16/24 08:32 06/16/24 08:32 06/16/24 08:32
Intake & Output
06/15/24 06/16/24 06/17/24
06:59 06:59 06:59
Intake Total 2854 / 2954 2700 / 2700
Output Total 1000 / 1000 750 / 750 475 / 475
Balance 1851953 1950 / 1950 -475 / -475
Intake:
Oral fluids 960 / 960 1080 / 1080
IV fluids (Total) 1694 / 1794 1420 / 1420
Lr 1,000 ml @ 100 mls/hr IV . 1650 / 1750 100 / 100
Q10H [facility] Rx#:[id number]
Lr 1,000 ml @ 60 mls/hr IV . 600 / 600
[id number] [facility] Rx#:[id number]
neosyn 44 / 44
IV piggybacks 200 / 200 200 / 200
Output:
Urine, Moore 1000 / 1000 350 / 350 475 / 475
Urine, Voided 400 / 400
Other:
Number of approximated LARGE 1
amounts of urine
Lab Results
06/16/24 06:20
06/16/24 06:20
Physical Exam
-
General: No Acute Distress and AOx3
HEENT: Grossly Normal
Abdomen: Soft, Non Distended, Tender (Appropriately tender near incisions), No Guarding and No Rebound
Skin: Warm and Dry
Wound: No Signs of Infection, Dressing in Place (With Dermabond) and No Skin Erythema
--- NOTE | 2024-06-16 10:17 | W.PN.CRS1 ---
Today's Communication / Plan
-
regular diet
okay for d/c if tolerates
eliquis tonight
continue course of po antibiotics
Assessment/Plan
-
POD#2 laparoscopic appendectomy
06/14/24- hypotensive post op, improved with yani gtt
-Advance diet to regular
-OOB as tolerated
-OR pathology pending
-On heparin subq q8, restart Eliquis tonight
-Continue IV antibiotics, 7 days total, po as outpatient
-Pain control: Tylenol standing, Dilaudid PRN
-Okay for discharge later today if tolerates a regular diet. All discharge instructions discussed with patient including medications, activity levels and follow up. All questions answered.
Subjective Data
Procedure
06/14/2023- laparoscopic appendectomy
Subjective Data
Date of Service: June 16, 2024
Objective Data
-
Vital Signs
Temp Pulse Resp BP Pulse Ox
98 F 94 18 135/77 95
06/16/24 08:32 06/16/24 08:32 06/16/24 08:32 06/16/24 08:32 06/16/24 08:32
Intake & Output
06/15/24 06/16/24 06/17/24
06:59 06:59 06:59
Intake Total 2854 / 2954 2700 / 2700
Output Total 1000 / 1000 750 / 750 475 / 475
Balance 1854 / 1954 1950 / 1950 -475 / -475
Intake:
Oral fluids 960 / 960 1080 / 1080
IV fluids (Total) 1694 / 1794 1420 / 1420
Lr 1,000 ml @ 100 mls/hr IV . 1650 / 1750 100 / 100
Q10H [facility] Rx#:[id number]
Lr 1,000 ml @ 60 mls/hr IV . 600 / 600
[id number] [facility] Rx#:[id number]
neosyn 44 / 44
IV piggybacks 200 / 200 200 / 200
Output:
Urine, Moore 1000 / 1000 350 / 350 475 / 475
Urine, Voided 400 / 400
Other:
Number of approximated MODERATE 1
amounts of urine
Number of approximated LARGE 1
amounts of urine
Lab Results
06/16/24 06:20
06/16/24 06:20
Physical Exam
-
General: No Acute Distress and AOx3
Abdomen: Soft, Non Distended and Non Tender
Skin: Warm and Dry
Incision: Clear, Dry, Intact
[2024-06-16 12:12] VITALS: BP 166/56
--- NOTE | 2024-06-16 12:34 | W.PN.HOSP.TC ---
Today's Communication/Plan
-
dc home
Assessment / Plan
Assessment / Plan
Assessment:
Sepsis POA - now progressed to post-operative multifactorial shock from sepsis (also Anesthesia effects)
- resolved with IVF and brief pressor requirements
Acute appendicitis
- CT: suggesting acute appendicitis. Progressed. No evidence of perforation or abscess formation. Associated appendicoliths.
- s/p lap appendectomy 06/14/24
- dc home today on regular diet
- 10 total days of Abx; Augmentin at home to finish course
- follow colorectal office in 2-4 weeks
EDWIN
- likely from dehydration, sepsis
- resolved with IVF
Elevated Lipase
- reactive
Parox Afib
- resume Eliquis this evening
- continue Flecainide/BB
Essential HTN
- resume BB/Lisinopril/HCTZ at discharge
DVT ppx: SC Heparin
Code: Full
More than 30 minutes spent in discharge including
Final examination of the patient
Summarizing hospital stay
Instructions for continuing care to all relevant caregivers
Preparation of discharge records, prescriptions, and referral forms
Total time spent (in minutes): 41
Anticipated Discharge: Today
Subjective/Interval History
-
Date of Service: June 16, 2024
advanced to regular diet
performed well with PT/OT
Objective Data
-
Labs:
Laboratory Results
06/16/24
06:20
WBC 8.7
Hgb 12.7
Hct 37.7
Plt Count 167 D
Sodium 133 L
Potassium 3.6
Chloride 97 L
Carbon Dioxide 32 H
BUN 31 H
Creatinine 0.9
Glucose 91
Calcium 8.2 L
Total Bilirubin 0.8
AST 24
ALT 21
Alkaline Phosphatase 86
Vital Signs:
Vital Signs
Temp Pulse Resp BP Pulse Ox
98.1 F 89 18 166/56 99
06/16/24 12:12 06/16/24 12:12 06/16/24 12:12 06/16/24 12:12 06/16/24 12:12
I&O
06/15/24 06/16/24 06/17/24
06:59 06:59 06:59
Intake Total 2854 / 2954 2700 / 2700
Output Total 1000 / 1000 750 / 750 475 / 475
Balance 1854 / 1954 1950 / 1950 -475 / -475
Physical Exam
-
General: No Apparent Distress
HEENT: Normocephalic and Atraumatic
Respiratory: Negative Wheezes
Cardiac: Regular Rhythm and S1/S2
GI: Soft
Genito-urinary: No Costovertebral Tender
Musculoskeletal: No Edema
Neuro: AO x 3
Hematologic / Lymphatic: No Lymphadenopathy
Psych: Calm
Data Reviewed
-
Total Time Spent with Patient (in minutes): 41
Labs: Labs Reviewed by me
--- NOTE | 2024-06-16 12:40 | W.DS.TRANS ---
DC Summary - It Investment/Portfolio Manager
-
Discharge Instructions:
Discharge Diagnosis/Procedures appendicitis s/p lap appendectomy 06/14/24
Diet Regular
Activity No strenuous activity
Additional Activity No lifting over 10lbs (gallon of milk)
Driving Restrictions No driving for 1 week
Bathing Restrictions OK to Shower
Wound Care Allow glue to naturally fall off. Do not pick at
incisions.
Instructions: Appendectomy - Discharge instructions
Stand-Alone Forms:
Changes to Home Medications: No
Discharge Medications:
DC Medications w/original date entered in [employer]
acetaminophen 325 mg tablet 650 mg PO PRN PRN pain 06/13/24
apixaban 2.5 mg tablet (Eliquis) 5 mg PO BID Blood Clot Prevention/Tx 06/13/24
lisinopril 40 mg tablet 40 mg PO DAILY Blood Pressure 06/13/24
metoprolol succinate 25 mg tablet,extended release 24 hr 25 mg PO DAILY Blood Pressure 06/13/24
metoprolol tartrate 25 mg tablet 25 mg PO PRN PRN palpatations 06/13/24
flecainide 50 mg tablet 100 mg PO BID Arrhythmia 06/15/24
hydrochlorothiazide 25 mg tablet 25 mg PO DAILY Blood Pressure 06/15/24
amoxicillin 875 mg-potassium clavulanate 125 mg tablet 1 tab PO Q12H 7 days #14 tabs 06/16/24
Home Medication Changes
Pending Results: No
Total time spent discharging patient (in min): 41
[2024-06-16] MEDS: FLUSH (NSS) 2 FLUSH IV (12:44)
--- NOTE | 2024-06-16 14:03 | VNURNOTE ---
Home Health Liaison met with patient and family at bedside to discuss [facility] nurse/therapy, visits, schedule and homebound status. Patient is agreeable and understands that visits at home will be 2-3 x per week to assess and teach medical management.
[facility] brochure provided with contact information. Patient is aware that [facility] will contact them for start of care in 1-2 days after discharge from .
[facility] referral completed in [facility].
--- NOTE | 2024-06-16 14:52 | CM ---
MD entered order for discharge.
Spoke with pt in room .
She said she is ready for discharge.
She said Shantelle dgt will drive her home.
Offered Vn she requested [facility] . Madeline S aware of referral.
IMM reviewed Pt agrees with dc.
PLAN Home with [facility]
--- NOTE | 2024-06-16 14:59 | PN.CDI ---
CDI
- -
CDI:
Physician Documentation Request
Admit Date: 06/13/24 01:59
Dear Doctor Waqar,
Clinical Indicators:
Patient admitted with acute appendicitis; s/p Laparoscopic appendectomy 06/14.
06/12 CT Report, 'Findings suggesting acute appendicitis. Progressed. No evidence of perforation or abscess formation'
06/14 Op Report, 'Findings:Severely inflamed appendix with nearby exudate'
06/15 PN, 'Continue antibiotic--there was a little spillage intraop from appendix.'
Based on the above, please clarify in the progress notes further specificity regarding the appendicitis, as well as any associated manifestations:
- Acute appendicitis without peritonitis
- Acute appendicitis with generalized peritonitis
- Please indicate if abscess is present
- Acute appendicitis with localized peritonitis
- Please indicate if abscess is present
- Please indicate if gangrene is present
- Acute appendicitis without perforation
- Please indicate if gangrene is present
Use of terms such as suspected, likely, concern for, or probable (associated with a specific diagnosis that is being evaluated, monitored, or treated as if it exists) are acceptable and can be coded in the inpatient setting, when documented at the
time of discharge.
Thank you,
Sowmya Feng RN BSN
CDI Specialist
available via tiger text
Please use your independent medical judgment in providing your response.
[2024-06-16] MEDS: FLUAD (65 yr+) 2024-2025 FORMULA 0.5 ML IM (15:14)
[2024-06-16] MEDS: TYLENOL 650 MG PO (15:14)
== END 2024-06-16 16:13 | disposition home health service (06) | DRG 853 ==
LOC: 4 EAST ACU 01:59
PROVIDERS: Nurse Practitioner Family; Physician Assistant; Registered Nurse; ADMITTING PHYSICIAN Internal Medicine; ATTENDING PHYSICIAN Internal Medicine; CONSULT PHYSICIAN Surgery; EMERGENCY PHYSICIAN Emergency Medicine; FAMILY PHYSICIAN Family Medicine; OTHER PHYSICIAN Internal Medicine Critical Care Medicine
PROC: 0DTJ4ZZ Resection of Appendix, Percutaneous Endoscopic Approach (ICD-10-PCS; 2024-06-14)
DX: A41.9 Sepsis, unspecified organism (principal); R65.21 Severe sepsis with septic shock; T81.12XA Postprocedural septic shock, initial encounter; N17.9 Acute kidney failure, unspecified; J98.11 Atelectasis; K35.30 Acute appendicitis with localized peritonitis, without perforation or gangrene; I48.0 Paroxysmal atrial fibrillation; Z79.01 Long term (current) use of anticoagulants; I10 Essential (primary) hypertension; Y83.8 Other surgical procedures as the cause of abnormal reaction of the patient, or of later complication, without mention of misadventure at the time of the procedure
CPT/HCPCS: 88304; 71045; 74177; 80048; 80053; 81003; 83605; 83690; 85025; 85027; 85610; 85730; 86850; 86900; 86901; 87040; 93005; 96365; 96375; 97161; 97165; 99285; C1776; Q9967

== ENCOUNTER → 2025-02-15 07:43 | Outpatient (REF) | payer OTHER, SELFPAY | LOC: HWRAD 07:43 | PROVIDERS: ATTENDING PHYSICIAN Specialist; FAMILY PHYSICIAN Family Medicine | DX: M19.011 Primary osteoarthritis, right shoulder (principal) | CPT/HCPCS: 73200 ==

== ENCOUNTER 2025-03-05 06:07 | Day surgery (SDC) | payer OTHER, SELFPAY ==
[2025-02-22 11:24] LABS: Hematocrit 45.5 % (37.0-47.0); Hemoglobin 14.8 g/dL (12.0-16.0); Mean Corp Hgb Conc. 32.5 g/dL (33.0-37.0); Mean Corpuscular Volume 91.5 fL (81.0-99.0); Platelet Count 203 10^3/uL (130-400); Red Cell Dist. Width 13.7 % (11.5-14.5)
[2025-02-22 12:36] LABS: ALT (SGPT) 23 U/L (0-35); AST (SGOT) 25 U/L (14-36); Albumin 4.2 g/dl (3.5-5.0); Alkaline Phosphatase 74 U/L (38-126); Blood Urea Nitrogen 29 mg/dl (7-17); Calcium 9.7 mg/dl (8.4-10.2); Carbon Dioxide 30 mmol/L (22-30); Chloride 103 mmol/L (98-107); Glucose 99 mg/dl (70-99); Potassium 4.7 mmol/L (3.5-5.1); Sodium 138 mmol/L (135-145); Total Protein 6.9 g/dl (6.3-8.2); eGFR 56.25
[2025-02-22 14:16] LABS: Glycohemoglobin (HgbA1c) 5.7 % (4.0-5.6)
[2025-02-22 14:20] VITALS: BMI 36.1
[2025-02-22 14:34] VITALS: BMI 36.1
--- NOTE | 2025-02-26 14:54 | CM ---
Demographics: confirmed
Living situation: lives alone, daughter is available
Support Person Post Operatively: Daughter
History of
VN: Yes, not currently on service
SNF: No
Outpatient: 'Somewhere in [place]'
Has patient purchased required equipment: yes. CM assisted patient with purchasing Benzyl Peroxide Get, CM sent [employer] to patient.
PCP: Angel
Pharmacy: [facility]
Post Operative Discharge Plan: Home with daughter
[2025-03-05] VITALS (12 sets, daily range): BP systolic 102–172; BP diastolic 53–116
[2025-03-05] MEDS: TYLENOL 1000 MG PO (07:12)
[2025-03-05] MEDS: MOBIC 15 MG PO (07:12)
--- NOTE | 2025-03-05 08:10 | W.DS.TRANS ---
DC Summary - Main Line Assembler
-
Discharge Instructions:
Sleep Apnea Risk Intermediate
Discharge Diagnosis/Procedures R Reverse TSA Dr Hernandez 03/05/25
Diet As tolerated
Activity No strenuous activity
Driving Restrictions No driving
Instructions:
Stand-Alone Forms: SDS Total Shoulder D/C Inst.
Changes to Home Medications: Yes
Discharge Medications:
DC Medications w/original date entered in [employer]
metoprolol succinate 25 mg tablet,extended release 24 hr 25 mg PO DAILY Blood Pressure 06/13/24
flecainide 100 mg tablet 100 mg PO DAILY 02/19/25
mupirocin 2 % topical ointment 1 applic topical BID infection prevention #1 tube 02/19/25
dexamethasone 4 mg tablet 4 mg PO BID inflammation #6 tabs 02/22/25
doxycycline hyclate 100 mg capsule 100 mg PO BID infection prevention #10 caps 02/22/25
gabapentin 300 mg capsule 300 mg PO HS sleep/pain #10 caps 02/22/25
ondansetron 4 mg disintegrating tablet 4 mg PO Q6H PRN n/v #20 tabs 02/22/25
oxycodone 5 mg tablet 5 mg PO Q6H PRN 1 tab moderate pain, 2 tabs severe pain #30 tabs 02/22/25
acetaminophen 325 mg tablet 650 mg (2 x 325 mg) PO QID #0 tabs 03/05/25
apixaban 5 mg tablet (Eliquis) 2.5 mg (1/2 x 5 mg) PO BID Blood clot prevention/tx/afib #0 tabs 03/05/25
docusate sodium 100 mg capsule (Colace) 100 mg PO BID stool softner #1 cap 03/05/25
hydrochlorothiazide 25 mg tablet 25 mg PO DAILY Blood Pressure #0 tabs 03/05/25
lisinopril 40 mg tablet 40 mg PO DAILY Blood Pressure #0 tabs 03/05/25
magnesium hydroxide 400 mg/5 mL oral suspension (Milk of Magnesia) 30 ml PO HS PRN constipation #1 mL 03/05/25
sennosides 8.6 mg tablet (Senokot) 17.2 mg (2 x 8.6 mg) PO BID laxative #2 tabs 03/05/25
Home Medication Changes
mupirocin 2 % topical ointment 1 applic topical BID infection prevention #1 tube 02/19/25
dexamethasone 4 mg tablet 4 mg PO BID inflammation #6 tabs 02/22/25
doxycycline hyclate 100 mg capsule 100 mg PO BID infection prevention #10 caps 02/22/25
gabapentin 300 mg capsule 300 mg PO HS sleep/pain #10 caps 02/22/25
ondansetron 4 mg disintegrating tablet 4 mg PO Q6H PRN n/v #20 tabs 02/22/25
oxycodone 5 mg tablet 5 mg PO Q6H PRN 1 tab moderate pain, 2 tabs severe pain #30 tabs 02/22/25
acetaminophen 325 mg tablet 650 mg (2 x 325 mg) PO QID #0 tabs 03/05/25
apixaban 5 mg tablet (Eliquis) 2.5 mg (1/2 x 5 mg) PO BID Blood clot prevention/tx/afib #0 tabs 03/05/25
docusate sodium 100 mg capsule (Colace) 100 mg PO BID stool softner #1 cap 03/05/25
hydrochlorothiazide 25 mg tablet 25 mg PO DAILY Blood Pressure #0 tabs 03/05/25
lisinopril 40 mg tablet 40 mg PO DAILY Blood Pressure #0 tabs 03/05/25
magnesium hydroxide 400 mg/5 mL oral suspension (Milk of Magnesia) 30 ml PO HS PRN constipation #1 mL 03/05/25
sennosides 8.6 mg tablet (Senokot) 17.2 mg (2 x 8.6 mg) PO BID laxative #2 tabs 03/05/25
Pending Results: No
[2025-03-05] MEDS: ANCEF 5 IV (11:49)
== END 2025-03-05 12:00 | disposition home or self-care (01) ==
LOC: SDS 06:07
PROVIDERS: ATTENDING PHYSICIAN Specialist; FAMILY PHYSICIAN Family Medicine; OTHER PHYSICIAN Internal Medicine Clinical Cardiac Electrophysiology; OTHER PHYSICIAN Physician Assistant Medical
DX: M19.011 Primary osteoarthritis, right shoulder (principal); Z96.611 Presence of right artificial shoulder joint
CPT/HCPCS: 23472; 36415; 73020; 80053; 83036; 85027; 87070; C1713; C1776

== ENCOUNTER 2025-03-06 04:49 | Observation (INO) | payer OTHER, SELFPAY ==
[2025-03-05 23:16] VITALS: BP 171/92
[2025-03-05 23:45] VITALS: BP 162/75
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
[2025-03-06] VITALS (14 sets, daily range): BP systolic 93–173; BP diastolic 51–86; PULSE 88; O2SAT 94; BMI 35.3; BMI 35.0
[2025-03-06 00:11] LABS: Hematocrit 45.1 % (37.0-47.0); Hemoglobin 15.1 g/dL (12.0-16.0); Mean Corp Hgb Conc. 33.5 g/dL (33.0-37.0); Mean Corpuscular Volume 90.7 fL (81.0-99.0); Nucleated Red Blood Cells % 0 %; Platelet Count 202 10^3/uL (130-400); Red Cell Dist. Width 13.6 % (11.5-14.5)
[2025-03-06 00:25] LABS: ALT (SGPT) 26 U/L (0-35); AST (SGOT) 35 U/L (14-36); Albumin 4.3 g/dl (3.5-5.0); Alkaline Phosphatase 71 U/L (38-126); Blood Urea Nitrogen 35 mg/dl (7-17); COVID-19 Antigen Negative (Negative); Calcium 9.2 mg/dl (8.4-10.2); Carbon Dioxide 28 mmol/L (22-30); Chloride 104 mmol/L (98-107); Estimated Creatinine Clearance 34 ml/min; Glucose 159 mg/dl (70-99); Potassium 4.9 mmol/L (3.5-5.1); Sodium 139 mmol/L (135-145); Total Protein 7.1 g/dl (6.3-8.2); eGFR 45.19
[2025-03-06] MEDS: APRESOLINE 10 MG IV (03:36)
--- NOTE | 2025-03-06 03:45 | HPS.HSE ---
Family Physician
-
Family Physician: Isaiah Ortiz
Chief Complaint
-
shortness of breath
History of Present Illness
This is an 84-year-old female with past medical history significant for atrial fibrillation on anticoagulation with apixaban, hypertension who presents to the emergency department status post right shoulder arthroplasty in the morning complaining of
shortness of breath and dyspnea on exertion.
Patient reports feeling in usual state of health prior to the surgery. Denies having any chest pain shortness of. Worsening dyspnea on exertion and lower extremity swelling orthopnea or PND. She stated that she held her apixaban since the .
She underwent surgery with general anesthesia. She reported that immediately after the surgery daughter remarked that she was breathing rapidly. Initially she did not think too much of it because she was just out of surgery. When they arrived
home she noticed that she could not walk the distance that she normally walks without feeling very short of breath. She also reports that when she tries to lay down she feels short of breath. She denies any cough productive or otherwise. She
denies any fevers or chills. He has no known sick contacts. She denies hearing any wheezing. She denies having any chest pain. She denies any pleuritic symptoms nausea or vomiting. She denies any diaphoresis. She denies having any chest pain.
On arrival in the emergency department she was hypertensive to 170/75, temperature was 98.4, she was desatting to 90% on room air. Pulse rate was 73. Respirate rate was in the 20s.
Chest x-ray shows no acute infiltrates edema or pneumothorax. CT with PE protocol is negative for acute PE and also shows no acute infiltrate. There is right lower lobe atelectasis noted.
ECG with normal sinus rhythm at a rate of 66 known right bundle branch block otherwise no ischemic findings. BNP was 400. COVID test was negative.
CBC showed a white count of 12.4 but otherwise unremarkable. Electrolytes BUN and creatinine were in the normal range.
Medical History
Past Medical History
Past Medical History: Reports Arrhythmia (Atrial fibrillation) and HTN
Past Surgical History: Reports Appendectomy, Orthopedic (Left shoulder replacement, status post right shoulder replacement) and Urological (Bladder surgery)
Social History
Tobacco: Non-smoker
Alcohol: None
Drug: None
Living: With Family
Family History
Family History: Not pertinent
Allergies / Home Medications
Allergies reflects when Allergies were last updated in [employer].
Home Medications with original date entered in [employer]
Allergy/Medication List:
Allergies
Allergy/AdvReac Type Severity Reaction Status Date / Time
Sulfa (Sulfonamide Allergy Unknown Rash Verified 03/05/25 23:15
Antibiotics) Swelling
latex (Latex) Allergy Rash & Verified 03/05/25 23:15
Swelling
Home Medications
metoprolol succinate 25 mg tablet,extended release 24 hr 25 mg PO DAILY Blood Pressure 06/13/24
flecainide 100 mg tablet 100 mg PO DAILY 02/19/25
gabapentin 300 mg capsule 300 mg PO HS sleep/pain #10 caps 02/22/25
ondansetron 4 mg disintegrating tablet 4 mg PO Q6H PRN n/v #20 tabs 02/22/25
oxycodone 5 mg tablet 5 mg PO Q6H PRN 1 tab moderate pain, 2 tabs severe pain #30 tabs 02/22/25
acetaminophen 325 mg tablet 650 mg (2 x 325 mg) PO QID #0 tabs 03/05/25
apixaban 5 mg tablet (Eliquis) 2.5 mg (1/2 x 5 mg) PO BID Blood clot prevention/tx/afib #0 tabs 03/05/25
docusate sodium 100 mg capsule (Colace) 100 mg PO BID stool softner #1 cap 03/05/25
hydrochlorothiazide 25 mg tablet 25 mg PO DAILY Blood Pressure #0 tabs 03/05/25
lisinopril 40 mg tablet 40 mg PO DAILY Blood Pressure #0 tabs 03/05/25
magnesium hydroxide 400 mg/5 mL oral suspension (Milk of Magnesia) 30 ml PO HS PRN constipation #1 mL 03/05/25
sennosides 8.6 mg tablet (Senokot) 17.2 mg (2 x 8.6 mg) PO BID laxative #2 tabs 03/05/25
Review of Systems
-
Constitutional: Reports No Symptoms
EENT: Reports No Symptoms
Respiratory: Reports Trouble Breathing
Cardiac: Reports No Symptoms
Abdomen/GI: Reports No Symptoms
: Reports No Symptoms
Musculoskeletal: Reports No Symptoms
Skin: Reports No Symptoms
Neurological: Reports No Symptoms
Endocrine: Reports No Symptoms
Hematologic/Lymphatic: Reports No Symptoms
Psych: Reports No Symptoms
Physical Exam
Vital Signs
Vital Signs
Temp Pulse Resp BP Pulse Ox
98.4 F 72 31 173/84 94
03/05/25 23:16 03/06/25 03:36 03/06/25 02:30 03/06/25 03:36 03/06/25 02:30
Physical Exam
General: Well Developed and Pain
HEENT: NormoCephalic, Anicteric, Moist mucous membranes and Atraumatic
Respiratory: Clear and Other (decreased breath sounds at the R lower lobe)
Cardiac: S1/S2 and Regular Rhythm
Breast: Deferred by me
GI: Soft, Non Distended, Normal Bowel Sounds and Tender
Rectal: Deferred by Provider
Genito-urinary: Deferred by me
Musculoskeletal: No Clubbing, No Cyanosis and No Edema
Skin: Warm
Neuro: AO x 3 and Nonfocal/grossly intact
Psych: Calm
Laboratory Results
-
03/05/25 23:59
03/05/25 23:59
Laboratory Results
Total Bilirubin 0.3 mg/dl (0.2-1.3) 03/05/25 23:59
AST 35 U/L (14-36) 03/05/25 23:59
ALT 26 U/L (0-35) 03/05/25 23:59
Alkaline Phosphatase 71 U/L (38-126) 03/05/25 23:59
Data Reviewed
-
Diagnostic Radiology: Image Personally Visualized and interpreted
CT Scan: Report Reviewed by me
Medical Tests (Nuc Med, Echo, EKG etc): Image Personally Visualized and interpreted
Lab Data: Labs Reviewed by me
Old Records: Reviewed
Impression/Plan
-
IMPRESSION:
84-year-old female with past medical history of hypertension and proximal atrial fibrillation without known underlying lung disease presents to the emergency department with shortness of breath, dyspnea on exertion after right rotator cuff repair
for which she had a general anesthesia. Patient reports feeling short of breath and tachypneic immediately after the procedure without cough or fever or chills. She denies any runny nose. She denies having any chest pain. Workup here in the
emergency department is negative for ACS, no PE. Chest x-ray without any acute infiltrates and CT PE does not show any PE nor pneumonia. She does have decreased breath sounds at the right lower lobe and there is atelectasis on CT scan there. She
is not wheezing. COVID test is negative. Suspect overall patient is has postsurgical atelectasis and given her weight and underlying exercise tolerance she becomes hypoxic and is unable to compensate with subsequent tachypnea and tachycardia. BNP
is 400 however there is no pulmonary edema. Given HD BNP is non-diagnostic for CHF.
PLAN:
1. SOB - Suspect atelectasis. No signs of infection on imaging modalities used. No evidence of volume overload.
- admit to telemetry for now
- check procal with am labs
- vbg
- for now duonebs, incentive spirometry and supplemental oxygenation.
- pain control
- if no improvement over next 24 hours, would consider echo and cardiology consult.
2. AFIB - rate controlled and currently sinus
- continue her metoprolol and flecainide
- restart apixaban saturday morning
3. HTN -
- continue lisinopril and metoprolol
- prn hydralazine
DVT PPX - lovenox sq while off ac
Code status - Full Code
[2025-03-06] MEDS: DUONEB 3 ML INH ×5 (04:45→20:01)
[2025-03-06 08:15] LABS: Venous Blood Gas B.E. 5.3 mmol/L (-4 to +4); Venous Blood Gas O2 Sat % 98.3 %
[2025-03-06 08:16] LABS: Hematocrit 42.2 % (37.0-47.0); Hemoglobin 14.3 g/dL (12.0-16.0); Mean Corp Hgb Conc. 33.9 g/dL (33.0-37.0); Mean Corpuscular Volume 89.4 fL (81.0-99.0); Platelet Count 157 10^3/uL (130-400); Red Cell Dist. Width 13.6 % (11.5-14.5)
[2025-03-06 08:49] LABS: Blood Urea Nitrogen 29 mg/dl (7-17); Calcium 9.1 mg/dl (8.4-10.2); Carbon Dioxide 27 mmol/L (22-30); Chloride 104 mmol/L (98-107); Estimated Creatinine Clearance 46 ml/min; Glucose 117 mg/dl (70-99); Magnesium 2.2 mg/dl (1.6-2.3); Potassium 4.1 mmol/L (3.5-5.1); Sodium 137 mmol/L (135-145); eGFR > 60.00
--- NOTE | 2025-03-06 09:02 | W.PN.HOSP.TC ---
Today's Communication/Plan
-
Antibiotics
Assessment / Plan
Assessment / Plan
Physical exam:
General: Acutely ill
HEENT: Normocephalic, Atraumatic and Moist Mucous Membranes
Respiratory: Clear to Auscultation; Negative Wheezes, Rales or Rhonchi
Cardiac: Regular Rhythm and S1/S2
GI: Soft, Nontender and Nondistended
Musculoskeletal: Right sling shoulder. No Clubbing, No Cyanosis and No Edema
Neuro: Awake, Alert and Oriented, no neurological deficit
Psych: Calm
A/P:
Pneumonia:
Although perioperative likely community-acquired
Start IV Rocephin and oral doxycycline
Incentive spirometry
Seen CT scan of the chest
Check strep and Legionella antigen
Bronchodilators as needed
PT OT eval
Right shoulder surgery for recent right shoulder cuff arthropathy:
Continue postop care
PT OT
Pain control and bowel regimen
Paroxysmal A-fib:
Continue rate control, metoprolol succinate 25 mg p.o. daily
Continue antiarrhythmics, flecainide 100 mg p.o. daily
Continue anticoagulation, Eliquis 2.5 mg twice a day
Hypertension:
Continue current antihypertensives
DVT prophylaxis:
Eliquis
CODE STATUS:
Full code
Time spent 35-minutes
Anticipated Discharge: Within 24 hours
Subjective/Interval History
-
Date of Service: March 06, 2025
Patient feels better overall. Still having shallow breathing. Mild right shoulder discomfort. Afebrile
Objective Data
-
Labs:
Laboratory Results
03/05/25 03/06/25
23:59 07:56
WBC 12.4 H 11.6 H
Hgb 15.1 14.3
Hct 45.1 42.2
Plt Count 202 157 D
Sodium 139 137
Potassium 4.9 4.1
Chloride 104 104
Carbon Dioxide 28 27
BUN 35 H 29 H
Creatinine 1.2 H 0.9
Glucose 159 H 117 H
Calcium 9.2 9.1
Total Bilirubin 0.3
AST 35
ALT 26
Alkaline Phosphatase 71
Vital Signs:
Vital Signs
Temp Pulse Resp BP Pulse Ox
97.6 F 76 16 109/77 98
03/06/25 06:00 03/06/25 07:53 03/06/25 07:53 03/06/25 06:00 03/06/25 07:54
[2025-03-06 09:12] LABS: Procalcitonin < 0.05 ng/ml (0.0-0.25)
[2025-03-06] MEDS: TYLENOL 650 MG PO ×3 (09:20→20:53)
[2025-03-06] MEDS: ZESTRIL 40 MG PO (09:21)
[2025-03-06] MEDS: COLACE 100 MG PO ×2 (09:21→20:46)
[2025-03-06] MEDS: TOPROL XL 25 MG PO (09:21)
[2025-03-06] MEDS: SENOKOT 17.2 MG PO ×2 (09:21→20:46)
[2025-03-06] MEDS: TAMBOCOR 100 MG PO (09:22)
[2025-03-06] MEDS: ORETIC 25 MG PO (09:22)
--- NOTE | 2025-03-06 10:24 | CM ---
Reviewed the chart notes and spoke with the patient at the bedside. The patient is admitted under observational status. The [facility] letter was provided and explained. The patient had no questions with regards to the letter.
The patient had shoulder replacement yesterday and when she arrived at home experienced shortness of breath. The patient resides with her son in a two story home with 10 steps to enter. The patient reports VN were arranged to see patient.
Referral sent via [facility]. The patient reports no DME or SNF in the past. The patient confirmed her [facility] of choice [facility]. continues to be available to patient/family and is monitoring medical plan for needs at
discharge.
Plan: Discharge to home when medically stable with VN services.
--- NOTE | 2025-03-06 11:00 | W.PN.ORTHO ---
Today's Communication / Plan
-
Patient reports that she is feeling much better today. Her breathing has improved dramatically. Her vital signs remain stable and right shoulder dressing is clean. Yesterday she did undergo interscalene block which can paralyze her right
diaphragm. Spoke to anesthesia this morning and they used bupivacaine yesterday which usually last for about 24 hours. I recommend she continue with sling, range of motion exercises (which I reviewed with patient) and nonweightbearing for her
right upper extremity. I recommend that she try to move around as much as possible, continue with incentive spirometry and could potentially go home today if medicine feels that she is stable. Discussed with her nurse Loretta to try to encourage
her to get up and move around. Continue with orthopedic discharge instructions which she received yesterday. Follow-up with Dr. Hernandez 2 weeks postop to check her progress. Patient
Assessment
.
Distal Motor Intact: Yes
Dressing:
Clean, dry and intact.
Plan
.
Surgery / Date: R reverse TSA 03/05 David
DVT Prophylaxis: Other (Eliquis)
Activity:
Out of bed.
PT/OT
Discharge Plan: Home
Subjective
.
.:
Patient underwent right reverse total shoulder arthroplasty March 06, [address] Hernandez. After surgery she did notice some shortness of breath and it was a little more pronounced when she got home. She came back to [place]
[facility] emergency room for evaluation. Vital signs were stable and she did have a CT of her chest which was negative for PE. This morning she is resting comfortably and feels that her breathing is much better. She is tolerating sling, pain has
been controlled and she is back on Eliquis.
Vital Signs and Labs
.
Vital Signs and Labs:
Lab Results
03/06/25 07:56
03/06/25 07:56
Temp Pulse Resp BP Pulse Ox
98.5 F 79 16 141/70 92
03/06/25 07:30 03/06/25 09:22 03/06/25 07:53 03/06/25 09:22 03/06/25 09:30
--- NOTE | 2025-03-06 11:43 | PTCARENOTE ---
Encouraged pt to get OOB to chair. Pt agreeable after speaking with Orthopedics. Pt OOB chair, after approx. 20 minutes pt states she started to feel nauseous/dizzy. Pt back in bed, symptoms subsided. Pt removed brace to perform ROM exercises as per
ortho instructions. Brace re-applied. Educated and encouraged pt to be more active, walk, sit in chair, etc. Pt states understanding of importance of activity but declines at this time. Resting comfortably in bed, no complaints at this time.
[2025-03-06] MEDS: VIBRAMYCIN 100 MG PO ×2 (11:51→20:46)
[2025-03-06] MEDS: ROCEPHIN 1000 MG IV (11:51)
[2025-03-06] MEDS: STERILE WATER FOR INJECTION 10 ML IV (11:51)
[2025-03-06] MEDS: LOVENOX 40 MG SC (17:02)
[2025-03-06] MEDS: ROXICODONE 5 MG PO (20:54)
[2025-03-06 21:55] LABS: Glucose - Point of Care 102 mg/dl (70-99)
[2025-03-06] MEDS: NEURONTIN 300 MG PO (23:01)
[2025-03-07 03:58] VITALS: BP 128/72
[2025-03-07 06:07] LABS: Hematocrit 41.6 % (37.0-47.0); Hemoglobin 14.1 g/dL (12.0-16.0); Mean Corp Hgb Conc. 33.9 g/dL (33.0-37.0); Mean Corpuscular Volume 92.2 fL (81.0-99.0); Nucleated Red Blood Cells % 0 %; Platelet Count 165 10^3/uL (130-400); Red Cell Dist. Width 14.1 % (11.5-14.5)
[2025-03-07] MEDS: TYLENOL 650 MG PO (06:22)
[2025-03-07] MEDS: TOPROL XL 25 MG PO (06:22)
[2025-03-07 06:34] LABS: Blood Urea Nitrogen 34 mg/dl (7-17); Calcium 8.9 mg/dl (8.4-10.2); Carbon Dioxide 29 mmol/L (22-30); Chloride 102 mmol/L (98-107); Estimated Creatinine Clearance 37 ml/min; Glucose 100 mg/dl (70-99); Potassium 4.0 mmol/L (3.5-5.1); Sodium 135 mmol/L (135-145); eGFR 50.17
[2025-03-07 07:45] VITALS: BP 159/74
[2025-03-07] MEDS: DUONEB 3 ML INH ×2 (08:17→11:34)
[2025-03-07] MEDS: COLACE 100 MG PO (08:45)
[2025-03-07] MEDS: TAMBOCOR 100 MG PO (08:45)
[2025-03-07] MEDS: ORETIC 25 MG PO (08:45)
[2025-03-07] MEDS: SENOKOT 17.2 MG PO (08:45)
[2025-03-07] MEDS: VIBRAMYCIN 100 MG PO (08:45)
[2025-03-07] MEDS: ZESTRIL 40 MG PO (08:45)
[2025-03-07 11:07] VITALS: BP 127/56; PULSE 95; O2SAT 96
[2025-03-07 11:33] VITALS: BP 118/64
[2025-03-07] MEDS: STERILE WATER FOR INJECTION 10 ML IV (12:05)
[2025-03-07] MEDS: ROCEPHIN 1000 MG IV (12:05)
--- NOTE | 2025-03-07 13:02 | W.PN.HOSP.TC ---
Today's Communication/Plan
-
Discharge planning today
Assessment / Plan
Assessment / Plan
Physical exam:
General: No acute distress
HEENT: Normocephalic, Atraumatic and Moist Mucous Membranes
Respiratory: Clear to Auscultation; Negative Wheezes, Rales or Rhonchi
Cardiac: Regular Rhythm and S1/S2
GI: Soft, Nontender and Nondistended
Musculoskeletal: Right sling shoulder. No Clubbing, No Cyanosis and No Edema
Neuro: Awake, Alert and Oriented, no neurological deficit
Psych: Calm
A/P:
Pneumonia:
Although perioperative likely community-acquired
Change Rocephin Doxy to oral Omnicef. Apparently was taking Doxy so can continue.
Continue incentive spirometry
Right shoulder surgery for recent right shoulder cuff arthropathy:
Discussed with Ortho today
Paroxysmal A-fib:
Continue rate control, metoprolol succinate 25 mg p.o. daily
Continue antiarrhythmics, flecainide 100 mg p.o. daily
Continue anticoagulation, Eliquis 2.5 mg twice a day that was reduced postop--> should be back to 5 mg twice a day at this point-confirmed with orthopedic surgery as well.
Hypertension:
Continue current antihypertensives
DVT prophylaxis:
Eliquis
CODE STATUS:
Full code
Anticipated Discharge: Today
Subjective/Interval History
-
Date of Service: March 07, 2025
Patient doing well. No shortness of breath or cough. Afebrile
Objective Data
-
Labs:
Laboratory Results
03/07/25
05:42
WBC 8.3
Hgb 14.1
Hct 41.6
Plt Count 165
Sodium 135
Potassium 4.0
Chloride 102
Carbon Dioxide 29
BUN 34 H
Creatinine 1.1 H
Glucose 100 H
Calcium 8.9
Vital Signs:
Vital Signs
Temp Pulse Resp BP Pulse Ox
98 F 98 18 118/64 94
03/07/25 11:33 03/07/25 11:37 03/07/25 11:37 03/07/25 11:33 03/07/25 12:55
I&O
03/06/25 03/07/25 03/08/25
06:59 06:59 06:59
Intake Total 680 / 680
Balance 680 / 680
--- NOTE | 2025-03-07 13:03 | W.DCSUMMARY ---
Discharge Summary
Discharge Data
Date of Admission: 03/06/25
Date of Discharge: 03/07/25
-
Pending Results: No
Hospital Course
Patient 84 years old female with history of hypertension, A-fib, obesity, recent right shoulder surgery came into the hospital shortness of breath and hypoxia postop. Patient had a CTA that was negative for PE but did show some evidence of
pneumonia. She also had some element of atelectasis postop. She was given antibiotics of IV Rocephin and doxycycline. She was also placed on incentive spirometry. Orthopedic saw her throughout this hospital stay. Patient did well rest of
hospital stay and she has remained on room air and back to her baseline. She also has been afebrile. We asked bilingual patient support caseworker for home health arrangements. She has been discharged in stable condition today.
Discharge Plan
-
Patient Disposition: Home with Home Care
Discharge Diagnosis/Procedures: Postop hypoxia. Community-acquired pneumonia. Atelectasis. Recent right shoulder surgery.
Diet: Low Cholesterol
Activity: As tolerated
Blood Work: Please PCP to order CBC, BMP within 1 week
Referrals:
Ezra Hernandez MD [Active, Orthopedics] - in two to four weeks
Isaiah Ortiz DO [Family Provider, Family Practice] - in less than 1 week
Prescriptions:
New
cefdinir 300 mg Capsule
300 mg PO Q12 5 Days Qty: 10 0RF
Continued
metoprolol succinate 25 mg Tablet Extended Release 24 Hr
25 mg PO DAILY
flecainide 100 mg Tablet
100 mg PO DAILY
mupirocin 2 % ointment
1 applic topical BID Qty: 1 0RF
Patient Comments:
Patient administered this medication today 03/05/25 @ 0515
dexamethasone 4 mg tablet
4 mg PO BID Qty: 6 0RF
Patient Comments:
for post op surgery on 03/05
Rx Instructions:
take with food
post-op use only
gabapentin 300 mg capsule
300 mg PO HS Qty: 10 0RF
Rx Instructions:
*POST-OP USE ONLY
ondansetron 4 mg tablet,disintegrating
4 mg PO Q6H PRN (Reason: n/v) Qty: 20 0RF
Rx Instructions:
take 1/2h b/f pain med if recurrent nausea
allow to dissolve in mouth w/o water
oxycodone 5 mg tablet
5 mg PO Q6H PRN (Reason: 1 tab moderate pain, 2 tabs severe pain) Qty: 30 0RF
Rx Instructions:
Ongoing therapy
POST-OP USE ONLY
doxycycline hyclate 100 mg capsule
100 mg PO BID Qty: 10 0RF
Rx Instructions:
Take with probiotic
docusate sodium [Colace] 100 mg capsule
100 mg PO BID Qty: 1 0RF
Rx Instructions:
for post op surgery on 03/05
magnesium hydroxide [Milk of Magnesia] 400 mg/5 mL suspension
30 ml PO HS PRN (Reason: constipation) Qty: 1 0RF
Rx Instructions:
CONTINUE colace W/senokot-if no bowel movement 1 day POST-OP -add milk of mag
sennosides [Senokot] 8.6 mg tablet
17.2 mg PO BID Qty: 2 0RF
Rx Instructions:
for post op surgery on 03/05
hydrochlorothiazide 25 mg Tablet
25 mg PO DAILY Qty: 0 0RF
Rx Instructions:
HOLD SYSTOLIC BLOOD PRESSURE <130 IF TAKING OXY
lisinopril 40 mg Tablet
40 mg PO DAILY Qty: 0 0RF
Rx Instructions:
HOLD SYSTOLIC BLOOD PRESSURE <130 IF TAKING OXY
acetaminophen 325 MG tablet
650 mg PO PRN PRN (Reason: pain)
Patient Comments:
for post op surgery on 03/05
Changed
Eliquis 5 mg Tablet
5 mg PO BID Qty: 0 0RF
Rx Instructions:
1/2tab (2,5mg) twice a day--RESUME 5MG TWICE A DAY DOSING ON 03/08
Discharge Orders:
Discharge Patient (As Directed); Ordered 03/07/25
Ordered By: Parvez Huber
Discharge Date and Time
Discharge Date/Time: 03/07/25 13:48
Print Language: KITTITIAN
[2025-03-07] MEDS: OMNICEF 300 MG PO (13:11)
== END 2025-03-07 13:48 | disposition home health service (06) ==
LOC: 4 EAST ACU 04:49
PROVIDERS: ADMITTING PHYSICIAN Internal Medicine; ATTENDING PHYSICIAN Hospitalist; EMERGENCY PHYSICIAN Emergency Medicine; FAMILY PHYSICIAN Family Medicine
DX: J18.9 Pneumonia, unspecified organism (principal); R06.02 Shortness of breath; I10 Essential (primary) hypertension; I48.0 Paroxysmal atrial fibrillation; R06.82 Tachypnea, not elsewhere classified; D72.829 Elevated white blood cell count, unspecified; R00.0 Tachycardia, unspecified; M12.9 Arthropathy, unspecified; R09.02 Hypoxemia; E66.9 Obesity, unspecified; R06.01 Orthopnea; R06.09 Other forms of dyspnea; J98.11 Atelectasis; I45.10 Unspecified right bundle-branch block; Z91.040 Latex allergy status; Z88.2 Allergy status to sulfonamides; Z79.01 Long term (current) use of anticoagulants; Z96.611 Presence of right artificial shoulder joint; Z90.49 Acquired absence of other specified parts of digestive tract; Z90.710 Acquired absence of both cervix and uterus; Z96.612 Presence of left artificial shoulder joint; Z68.35 Body mass index [BMI] 35.0-35.9, adult; Z11.52 Encounter for screening for COVID-19
CPT/HCPCS: 71045; 71275; 80048; 80053; 82805; 82962; 83735; 83880; 84145; 85025; 85027; 87502; 87811; 93005; 94640; 96374; 97161; 97166; 97535; 99285; G0378; Q9967